=== PATIENT | female | born 1950 | race Caucasian/White ===

== ENCOUNTER 2017-07-23 20:53 | Emergency (ER) | payer MEDICARE, OTHER ==
[2017-07-23] MEDS ORDERED: ALBUTEROL/IPRATROPIUM 1 VIAL SOL INH ONE (21:13)
[2017-07-23 21:24] LABS: BASOPHILS % (AUTO) 2 % (0-3); EOSINOPHILS % (AUTO) 3 % (0-9); HEMATOCRIT 41 % (35-47); MEAN CORPUSCULAR HGB CONC 33.5 gm/dl (32.0-36.0); MEAN CORPUSCULAR VOLUME 85 fL (81-99); MONOCYTES % (AUTO) 13.3 % (0-12); NEUTROPHILS % (AUTO) 58.8 % (37-80)
[2017-07-23 21:30] LABS: CALCIUM 8.1 mg/dl (8.5-10.1); POTASSIUM 3.6 mMol/L (3.5-5.1)
[2017-07-23] MEDS ORDERED: SODIUM CHLORIDE 0.9% 1000ML 1,000 ML IV ONE (21:32)
[2017-07-23] MEDS ORDERED: ALBUTEROL/IPRATROPIUM 1 VIAL SOL ONE (21:49)
[2017-07-23] MEDS ORDERED: SODIUM CHLORIDE 0.9% FLUSH 10 ML SOL IV PRN (21:57)
[2017-07-23] MEDS ORDERED: CODEINE/GUAIFENESIN 5 ML ML PO ONE ×2 (22:32→23:59)
[2017-07-23] MEDS ORDERED: CODEINE/GUAIFENESIN 5 ML ML ONE (23:03)
[2017-07-23 23:07] VITALS: RESP 20; O2SAT 99
[2017-07-23] MEDS ORDERED: ACETAMINOPHEN 325 MG PO ONE (23:34)
[2017-07-23] MEDS ORDERED: LEVOFLOXACIN 500 MG TAB ONE (23:36)
[2017-07-23] MEDS ORDERED: LEVOFLOXACIN 500 MG TAB PO ONE ×2 (23:36→23:40)
[2017-07-23] MEDS ORDERED: ACETAMINOPHEN 325 MG ONE (23:37)
[2017-07-23] MEDS ORDERED: SODIUM CHLORIDE 0.9% 500 ML 500 ML IV ONE (23:59)
[2017-07-24] MEDS ORDERED: CODEINE/GUAIFENESIN 5 ML ML ONE (00:01)
[2017-07-24 00:21] VITALS: TEMP 99
[2017-07-24 01:12] VITALS: BP 130/86; PULSE 102
[2017-07-24] MEDS ORDERED: LEVOFLOXACIN 500 MG TAB PO SCH (09:00)
== END 2017-07-24 00:50 | disposition home or self-care (01) | DRG 195 ==
LOC: ED 20:53
DX: J18.1 Lobar pneumonia, unspecified organism (principal)
CPT/HCPCS: 71046; 71260; 80048; 85025; 87040; 87804; 93005; 96365; 96366; 99284; 99285; J7620; Q9967; A9270-GY